=== PATIENT | female | born 1970 | race Hispanic/Latino ===

== ENCOUNTER → 2018-04-18 | Day surgery (SDC) | payer OTHER ==
[~2018-04-18] MED LIST: DEXILANT60 MG PO; EPINEPHRINE HCL INJ 1 MG/ML AMP ONE; HYDROCHLOROTHIA25 MG PO; LIDOCAINE HCL 2% LOCAL INJ 5 ML SDV VIAL INJ ONE; MIDAZOLAM HCL 2 MG/2 ML VIAL ONE; PANTOPRAZOLE 40 MG 10ML VIAL ONE; PROPOFOL IV EMULSION 10 MG/ML 50 ML VIAL ONE; VITAMIN E400 UNI1 PO
--- NOTE | 2018-04-18 15:54 | Operative Report ---
DATE OF PROCEDURE: April 18, 2018 REFERRING PHYSICIAN: Dr. Richard Saunders. PROCEDURE PERFORMED: Esophagogastroduodenoscopy with polypectomy and biopsies. INDICATIONS FOR ESOPHAGOGASTRODUODENOSCOPY: Heartburn indigestion, epigastric pain. MEDICATION: Patient was done under MAC. Please see anesthesiologist's note. PROCEDURE: With patient in the left lateral decubitus position, the flexible fiberoptic Olympus gastroscope was introduced into the esophagus under direct visualization without any difficulty. There was some patchy erythema noted in the distal esophagus. The scope was then advanced with ease into the stomach, and mucosa overlying the antrum and the body revealed some patchy erythema and low-grade to moderate edema, and biopsies were obtained and sent to stain for H. pylori. The pylorus was of normal contour and shape, was intubated with ease, and the scope was advanced all the way to the 2nd portion of the duodenum. The scope was then withdrawn slowly. Mucosa overlying the proximal 2nd portion and the duodenal bulb appeared to be within normal limits. The scope was then withdrawn back into the stomach and retroflexed, and approximately a 5 mm polypoid lesion was noted in the cardia that was removed per snare electrocautery. The fundus appeared to be within normal limits. The scope was then straightened out, and the stomach was decompressed. The scope was subsequently withdrawn. Patient tolerated the procedure well. IMPRESSION: 1. Distal esophagitis, mild. 2. Approximately 5 mm polypoid lesion, cardia, removed per snare electrocautery. 3. Gastritis biopsied. Biopsies sent to stain for H. pylori. PLAN: Follow up histology. Continue Dexilant 60 mg 1 p.o. q.a.m. a.c. Add Carafate 1 gram p.o. a.c. t.i.d. and nightly. Job#: [id number] EV cc:RICHARD SAUNDERS DO
== END | disposition home or self-care (01) ==
LOC: OR 12:05
PROVIDERS: ATTEND Internal Medicine Gastroenterology
DX: K20.9 Esophagitis, unspecified (principal); R12 Heartburn; R10.9 Unspecified abdominal pain; Z87.19 Personal history of other diseases of the digestive system; I10 Essential (primary) hypertension; K21.9 Gastro-esophageal reflux disease without esophagitis; Z87.440 Personal history of urinary (tract) infections; K29.70 Gastritis, unspecified, without bleeding; K63.5 Polyp of colon
CPT/HCPCS: 43239; 93005; J0171; J2001; J2250; 43251